=== PATIENT | male | born 1945 | race African-American/Black ===

== ENCOUNTER 2016-07-28 20:30 | Emergency (ER) | payer MEDICARE, OTHER ==
--- NOTE | ~2016-07-28 | CT4 ---
[facility] A Service of [facility] RADIOLOGY TEXT RESULTS PATIENT: NEDA SANTIAGO LOCATION: IVONE : 47 UNIT #: [id number] AGE: [address]: Manny Rogers DO SEX: M ORDER DR: [id number] [facility] [address] [place], [place] [address] [id number] E MR#: [id number] Acc #: [id number] NAME: NEDA SANTIAGO : 1945 SEX: M STUDY DATE/TIME: 07/28/2016 23:41 UNIT: IVONE ROOM: STUDY DESCRIPTION: CT Abd and Pelv Wo Cont Attending Physician: Manny Rogers D.O. Ordering Physician: Manny Rogers D.O. Primary Care Physician: Valeria Dan M.D. MEDICAL IMAGING REPORT This report is preliminary unless electronic signature is present EXAM CT abdomen and pelvis without contrast INDICATION Upper abdominal pain today. Recent gastrostomy tube placement. Evaluate positioning. PROCEDURE Unenhanced CT of the abdomen and pelvis. This CT exam was performed with one or more of the following radiation dose reduction techniques: automatic exposure control, adjustment of mA and/or kV according to patient size, and iterative reconstruction. COMPARISON 07/05/2015 FINDINGS ABDOMEN WITHOUT CONTRAST: Included lung bases are clear. The liver, spleen, kidneys, adrenal glands, pancreas, gallbladder show no acute abnormality. There is a percutaneous gastrostomy tube in place with the balloon appropriately positioned in the stomach. No surrounding fluid or inflammatory change. Moderately large colonic stool burden. Bowel loops are nondilated. PELVIS WITHOUT CONTRAST: No pelvic mass or fluid. No aggressive appearing bone lesion. IMPRESSION 1. No acute findings. 2. Gastrostomy tube in appropriate position in the stomach. [facility] A Service of [facility] RADIOLOGY TEXT RESULTS PATIENT: NEDA SANTIAGO LOCATION: IVONE : 47 UNIT #: [id number] AGE: [address]: Hottman,Manny M DO SEX: M ORDER DR: Dictated by... Jimbo Gaviria M.D. THIS IS AN ELECTRONICALLY VERIFIED REPORT Jimbo Gaviria M.D. at 07/29/2016 10:14 PM EED/valerie TD: 07/29/2016 09:24 JOB #: [id number] MEDICAL IMAGING REPORT Page 1 of 1 COPY
--- NOTE | ~2016-07-28 | CR7 ---
[facility] A Service of [facility] RADIOLOGY TEXT RESULTS PATIENT: NEDA SANTIAGO LOCATION: IVONE : 47 UNIT #: [id number] AGE: [address]: Manny Rogers DO SEX: M ORDER DR: [id number] [facility] [address] [place], [place] [address] [id number] E MR#: [id number] Acc #: [id number] NAME: NEDA SANTIAGO : 1945 SEX: M STUDY DATE/TIME: 07/29/2016 3:43 UNIT: IVONE ROOM: STUDY DESCRIPTION: CR Abdomen Single AP View Attending Physician: Manny Rogers D.O. Ordering Physician: Manny Rogers D.O. Primary Care Physician: Valeria Dan M.D. MEDICAL IMAGING REPORT This report is preliminary unless electronic signature is present EXAM Abdominal radiograph INDICATIONS Evaluate gastrostomy tube placement. PROCEDURE Supine view of the abdomen after instillation of water-soluble contrast. COMPARISON 08/15/2015 FINDINGS Percutaneous gastrostomy tube is seen. Contrast is in the stomach with no evidence for leak. IMPRESSION Gastrostomy tube in the stomach. No evidence for leak. Dictated by... Jimbo Gaviria M.D. THIS IS AN ELECTRONICALLY VERIFIED REPORT Jimbo Gaviria M.D. at 07/29/2016 10:10 PM CHASE/barbara TD: 07/29/2016 09:52 JOB #: [id number] MEDICAL IMAGING REPORT Page 1 of 1 COPY
[~2016-07-28 20:30] MED LIST: ACETAMINOP160 MG/12 GT; ALLERGY INJECTION SUBQ; ATARAX GT; DEBROX OTIC DRO15 ML AD; FLORANEX T1 TAB.CHE3 GT; HYDROCODONE/APA1 T16 GT; HYDROXYZINE HCL50 MG GT; LEXAPRO20 MG GT; LIQUITEARS OU; MILK OF MAGNESIA GT; OS-CAL 500 + D500 MG GT; PROTONIX PEG; SYNTHROID75 MCG GT; ZANTAC150 M1 GT; ZIPRASIDONE HCL60 MG GT; ZYRTEC10 M5 GT; [UNRECOGNIZED DRUG - OTHER] GT
[2016-07-28 23:33] LABS: BASOPHIL% 0.4 % (0-2.5); EOSINOPHIL# 0.3 X10e3 (0-0.7); EOSINOPHIL% 3.9 % (0.0-7.0); HEMATOCRIT 37.7 % (38.0-50.0); HEMOGLOBIN 11.6 gm/dL (13.0-16.0); LYMPHOCYTE# 2.6 X10e3 (1.0-3.5); LYMPHOCYTE% 37.1 % (17.0-45.0); MEAN CELL VOLUME 77.3 FL (83-96); MEAN CORPUSCULAR HEMOGLOBIN 23.8 PG (28-34); MEAN CORPUSCULAR HGB CONC 30.8 g/dL (30-36); MONOCYTE# 0.9 X10e3 (0-1.0); MONOCYTE% 12.8 % (3.0-12.0); NEUTROPHIL# 3.3 X10e3 (1.5-7.1); NEUTROPHIL% 45.8 % (40-75); PLATELET COUNT 206 X10e3 (140-420); RED BLOOD COUNT 4.88 X10e (3.90-5.60); RED CELL DISTRIBUTION WIDTH 15.4 % (11.0-15.5); WHITE BLOOD COUNT 7.1 X10e3 (4.0-10.5)
[2016-07-28 23:34] LABS: DIFF IND NO
[2016-07-29] LABS: BILIRUBIN,TOTAL 0.3 mg/dL (0.2-2.0); CALCIUM SERUM 9.4 mg/dL (8.4-10.2); CREATININE SERUM 0.7 mg/dL (0.6-1.4); GLOM FILT RATE Estimated 112.4 mL/min (>60); POTASSIUM 4.1 mmol/L (3.5-5.1); PROTEIN TOTAL SERUM 8.8 g/dL (6.0-8.3)
[2016-07-29 01:04] LABS: URINE SOURCE CLEAN CATCH
[2016-07-29 01:08] LABS: URINE APPEARANCE CLEAR; URINE BILIRUBIN NEG (NEG); URINE BLOOD NEG (NEG); URINE COLOR YELLOW; URINE GLUCOSE NEG (NEG); URINE KETONE NEG (NEG); URINE LEUKOCYTE ESTERASE 2+ (NEG); URINE NITRATE POS (NEG); URINE PH 6.5 (5-8); URINE PROTEIN NEG (NEG)
[2016-07-29 01:10] LABS: CULTURE INDICATED? YES; URBCS1 AUWI 0-2 /[HPF] (0-2); URINE BACTERIA AUWI 4+ (NEGATIVE); URINE SQUAMOUS EPITHELIAL CELL FEW /[HPF]
== END 2016-07-29 05:55 | disposition home or self-care (01) ==
LOC: CED 20:30
PROVIDERS: Emergency Medicine
DX: N39.0 Urinary tract infection, site not specified (principal); E03.9 Hypothyroidism, unspecified; F41.9 Anxiety disorder, unspecified; F20.9 Schizophrenia, unspecified; B19.20 Unspecified viral hepatitis C without hepatic coma; I10 Essential (primary) hypertension; K21.9 Gastro-esophageal reflux disease without esophagitis; Z79.899 Other long term (current) drug therapy; Z88.8 Allergy status to other drugs, medicaments and biological substances
CPT/HCPCS: 36415; 74000; 74176; 80053; 81003; 83690; 85025; 87086; 87088; 87186; 96372; 99284; J0696

== ENCOUNTER → 2016-09-15 | Outpatient (CLI) | payer MEDICARE, OTHER ==
--- NOTE | ~2016-09-15 | CR63 ---
[facility] A Service of [facility] & [facility] RADIOLOGY TEXT RESULTS PATIENT: TIA SANTIAGO LOCATION: [facility] : [birth year] UNIT #: [id number] AGE: [address]: Valeria Dan MD SEX: M ORDER DR: [id number] [facility] [address] [place], [place] [address] [id number] O MR#: [id number] Acc #: [id number] NAME: TIA SANTIAGO : 1945 SEX: M STUDY DATE/TIME: 09/15/2016 14:27 UNIT: [facility] ROOM: STUDY DESCRIPTION: CR Chest 2 View Attending Physician: Valeria Dan M.D. Referring Physician: Valeria Dan M.D. Ordering Physician: Valeria Dan M.D. Primary Care Physician: Valeria Dan M.D. 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 Cough for a few days. COMPARISON 07/20/2015 FINDINGS A PA and lateral view of the chest were obtained. Heart size and they are normal. The lungs are clear. There is a healed fracture through the mid humerus and there are degenerative changes in both shoulders. IMPRESSION No active disease. Dictated by... Fred Garzon M.D. THIS IS AN ELECTRONICALLY VERIFIED REPORT Fred Garzon M.D. at 09/16/2016 7:08 AM PATRICK/pedro pablo TD: 09/16/2016 01:40 JOB #: [id number] MEDICAL IMAGING REPORT Page 1 of 1 COPY
== END | disposition home or self-care (01) ==
LOC: CRAD 13:57
DX: R76.11 Nonspecific reaction to tuberculin skin test without active tuberculosis (principal)
CPT/HCPCS: 71020

== ENCOUNTER → 2016-11-13 | Outpatient (CLI) | payer MEDICARE, OTHER ==
[2016-11-13 12:04] LABS: URINE APPEARANCE CLEAR; URINE BILIRUBIN NEG (NEG); URINE BLOOD NEG (NEG); URINE COLOR YELLOW; URINE GLUCOSE NEG (NEG); URINE KETONE NEG (NEG); URINE LEUKOCYTE ESTERASE 1+ (NEG); URINE NITRATE POS (NEG); URINE PROTEIN NEG (NEG); URINE SPECIFIC GRAVITY 1.022 (1.003-1.035); URINE UROBILINOGEN 0.2 MG/DL (NEG)
[2016-11-13 12:06] LABS: URBCS1 AUWI 0-2 /[HPF] (0-2); URINE BACTERIA AUWI 4+ (NEGATIVE); URINE SQUAMOUS EPITHELIAL CELL NONE SEEN /[HPF]
[2016-11-13 13:43] LABS: URINE SOURCE CLEAN CATCH
== END | disposition home or self-care (01) ==
LOC: CLAB 09:48
PROVIDERS: Family Medicine
DX: N39.0 Urinary tract infection, site not specified (principal); B96.20 Unspecified Escherichia coli [E. coli] as the cause of diseases classified elsewhere; M48.02 Spinal stenosis, cervical region
CPT/HCPCS: 80307; 81003; 87086; 87088; 87186; G0463